=== PATIENT | male | born 1990 | race Caucasian/White ===

== ENCOUNTER 2020-07-05 09:44 | Outpatient (CLI) | payer BC, SELFPAY ==
--- NOTE | ~2020-07-05 | XR_ITS ---
EXAMINATION: XR lumbar spine 2-3V DATE: 07/05/2020 10:00 INDICATION: Dorsalgia TECHNIQUE: Anteroposterior and lateral views of the lumbar spine, and cone-down lateral view of the l umbosacral junction were obtained. COMPARISON: 06/29/2011 FINDINGS: There is no fracture, dislocation, or subluxation. There is chronic mild physiologic wedgin g of L1. A Schmorl's node is noted at L3. The intervertebral disc spaces are maintained. A calcificat ion of the right upper quadrant likely represents cholelithiasis. IMPRESSION: 1. No acute osseous abnormality. Reviewed, dictated and finalized at location A.
== END 2020-07-05 09:45 | disposition home or self-care (01) ==
LOC: ANHIMG 09:49
PROVIDERS: PCP Internal Medicine; Visit Provider Clinical Nurse Specialist
DX: M54.5 Low back pain (principal)
CPT/HCPCS: 72100

== ENCOUNTER 2020-07-13 09:06 | Outpatient (CLI) | payer BC, SELFPAY ==
--- NOTE | ~2020-07-13 | US_ITS ---
EXAMINATION: US abdomen limited EXAM DATE: 07/13/2020 09:33 INDICATION: R74.8 - Abnormal levels of other serum enzymes. Elevated liver enzymes. TECHNIQUE: Multiple grayscale and Doppler images of the abdomen right upper quadrant were obtained (b y a technologist who performed the scan) and subsequently reviewed. There is no prior study for lola lo. FINDINGS: The pancreatic head and body are normal in appearance. The pancreatic tail is not visualized. The l iver has normal echogenicity and contour. There are no focal liver lesions identified. There is no evidence of intrahepatic biliary duct dilation. Portal venous flow was seen in the hepatopedal, nor mal direction and has normal Doppler waveform. No right-sided hydronephrosis. Common bile duct measures 3 mm, which is normal. The gallbladder wall is normal in thickness, with ex pected amount of distention. No sonographic evidence of pericholecystic fluid. Tiny gallbladder dax yp measuring about 3 mm and requiring no further evaluation. Technologist performing exam reports nancy mead did not demonstrate sonographic Jimenez's sign. Please note that this sign is less reliable in patients who have received pain medication. IMPRESSION: 1. Unremarkable abdominal ultrasound exam. Reviewed, dictated and finalized at location B.
== END 2020-07-13 09:07 | disposition home or self-care (01) ==
LOC: ANHIMG 09:10
PROVIDERS: PCP Internal Medicine; Visit Provider Internal Medicine
DX: R74.8 Abnormal levels of other serum enzymes (principal)
CPT/HCPCS: 76705

== ENCOUNTER 2020-11-03 06:49 | Outpatient (CLI) | payer BC, SELFPAY ==
--- NOTE | ~2020-11-03 | MR_ITS ---
EXAMINATION: MR lumbar spine wo con DATE: 11/03/2020 07:31 INDICATION: Low back pain. TECHNIQUE: Magnetic resonance imaging (MRI) of the lumbar spine was performed without intravenous con trast. Sequences included sagittal T2-weighted FSE, sagittal T2-weighted FS FSE, sagittal T1-weighted FSE, and axial T2-weighted FSE. COMPARISON: Lumbar spine radiograph 07/05/2020 FINDINGS: Bone alignment is normal. There are Schmorl's nodes at multiple levels. There is mild chron ic anterior wedging of T12 and L1 vertebral bodies. There is mildly decreased disc height at L5-S1. T he distal spinal cord signal intensity is normal. The conus medullaris is at L1. The following disc l evels are specifically discussed: L1-L2: There is a central protrusion. There is mild bilateral facet joint osteoarthritis. There is no neural foraminal stenosis. There is mild central canal stenosis. L2-L3: The disc does not extend beyond the endplate margin. There is mild bilateral facet joint osteo arthritis. There is no neural foraminal stenosis. There is no central canal stenosis. L3-L4: The disc is mildly bulging. There is mild bilateral facet joint osteoarthritis. There is mild bilateral neural foraminal stenosis. There is no central canal stenosis. L4-L5: The disc does not extend beyond the endplate margin. There is moderate right and mild left fac et joint osteoarthritis. There is no neural foraminal stenosis. There is no central canal stenosis. L5-S1: The disc is bulging and has an annular fissure. There is moderate bilateral facet joint osteoa rthritis. There is mild bilateral neural foraminal stenosis. There is mild central canal stenosis. IMPRESSION: 1. Mild lumbar spondylosis. Reviewed, dictated and finalized at location A. IMPRESSION: 1. Mild lumbar spondylosis.
== END 2020-11-03 06:50 | disposition home or self-care (01) ==
LOC: ANHIMG 06:55
PROVIDERS: PCP Internal Medicine; Visit Provider Nurse Practitioner
DX: M54.5 Low back pain (principal); M47.816 Spondylosis without myelopathy or radiculopathy, lumbar region
CPT/HCPCS: 72148

== ENCOUNTER 2021-05-11 09:36 | Emergency (ER) | payer BC, SELFPAY ==
--- NOTE | ~2021-05-11 | XR_ITS ---
XR lumbar spine 2-3V DATE: 05/11/2021 10:52 INDICATION: Low back pain TECHNIQUE: AP, lateral, coned lateral lumbosacral views COMPARISON: 07/05/2020 lumbar spine FINDINGS: There is mild anterior wedging at T11 and T12, likely developmental, in addition to occasio nal lower thoracic and lumbar Schmorl's nodes. No fracture or bone destruction or spondylolisthesis. The lumbar pedicles are intact. There is mild loss of interspace height and moderate spurring at L1-2. Mild loss of interspace height at L2-3 and L5-S1.. IMPRESSION: Mild degenerative changes; little interval change since 07/05/2020 Reviewed, dictated and finalized at location A.
[2021-05-11 09:36] VITALS: BP 140/100; PULSE 82; RESP 17; TEMP 36.3; O2SAT 100
--- NOTE | 2021-05-11 10:30 | ED.BACK ---
HPI - Back Pain/Injury General Chief Complaint: Back Pain/Injury Stated Complaint: back pain Time Seen by Provider: 05/11/21 09:40 History of Present Illness HPI Narrative: 31-year-old male presents the emergency room with complaints of acute on chronic low back pain. Patient states he woke up on Saturday with all involved worse with movement. Patient states in October he had an MRI, which showed multilevel osteoarthritis and bulging disks. Patient at that time was referred to pain management, but did not follow-up. Patient denies any bowel or bladder changes. Denies saddle anesthesia. Patient states he is unsuccessfully been using a heating pad, ice, and alternating ibuprofen and Aleve with no relief of symptoms Related Data Home Medications Medication Instructions Recorded Confirmed esomeprazole magnesium 20 mg 20 mg PO DAILY 01/12/20 05/11/21 tablet,delayed release Allergies Allergy/AdvReac Type Severity Reaction Status Date / Time cefprozil Allergy Unknown Hives Verified 05/11/21 09:39 Review of Systems Review of Systems: CONSTITUTIONAL: Denies fever, chills, or sweats. EYES: Denies visual changes, redness, or discharge. ENT: Denies rhinorrhea, congestion, sore throat, or otalgia. CARDIOVASCULAR: Denies chest pain, palpitations, or edema. RESPIRATORY: Denies cough or dyspnea. GASTROINTESTINAL: Denies abdominal pain, nausea, vomiting, or diarrhea. GENITOURINARY: Denies dysuria or hematuria. SKIN: Denies rash or itching. MUSCULOSKELETAL: Reports low back pain NEUROLOGIC: Denies headache, numbness, dizziness, or weakness. PSYCHIATRIC: Denies anxiety or depression. [facility] Past Medical History Medical History Allergies Anxiety GERD (gastroesophageal reflux disease) HTN (hypertension) Sleep apnea Family History Family History Mother Atrial fibrillation Diabetes mellitus Sleep apnea Hypertension Factor V Leiden MTHFR mutation Father Carcinoma of colon Diabetes mellitus Sleep apnea Hypertension Alcoholism Grandparent Carcinoma of colon Diabetes mellitus Atrial fibrillation Blood clotting disorder Cardiovascular disorder Social History Social History Smoking status: Never smoker Alcohol intake: current Drinks per week: 140 Alcohol use details: Whiskey Substance use: current Substance use type: marijuana Exam Narrative: GENERAL: Well-appearing, well-nourished, and in no acute distress. HEAD: Normocephalic, atraumatic. EYES: PERRLA and EOMI. ENT: Nares clear, no rhinorrhea or epistaxis. Mucous membranes moist. CHEST: Clear to auscultation. No respiratory distress. No wheezes rales or rhonchi HEART: Regular rate and rhythm. No murmur heard. Normal peripheral pulses. ABDOMEN: Soft, nontender, nondistended, normal active bowel sounds. EXTREMITIES: Normal range of motion. No edema. BACK: Midline lumbar spinal tenderness, pain with range of motion in all escalante of movement, no bony abnormality, no step-offs SKIN: Warm, dry, no rash. NEURO: No focal deficits. Alert and oriented x3. PSYCH: Normal mood and affect. Course Vital Signs Vital signs: Vital Signs Temperature 36.3 C L 05/11/21 09:36 Pulse Rate 82 05/11/21 09:36 Respiratory Rate 17 05/11/21 09:36 Blood Pressure 140/100 H 05/11/21 09:36 Pulse Oximetry 100 05/11/21 09:36 Temperature 36.3 C L 05/11/21 09:36 Pulse Rate 82 05/11/21 09:36 Respiratory Rate 17 05/11/21 09:36 Blood Pressure 140/100 H 05/11/21 09:36 Pulse Oximetry 100 05/11/21 09:36 Discharge Plan Discharge Clinical Impression: Lumbar back pain Patient Disposition: Home, Self-Care Condition: Stable Instructions: Antibiotic Form Prescriptions: New hydrocodone-acetaminophen 5-325 mg tablet 1 tablet PO Q6H PRN (Reason: gisella
[2021-05-11] MEDS: methocarbamoL 500 MG TABLET 750 MG PO (10:37)
--- NOTE | 2021-05-11 10:46 | PC.NURSE ---
Pt to XRAY via w/c at this time.
[2021-05-11 11:23] VITALS: BP 159/98; PULSE 78; RESP 18; O2SAT 100
== END 2021-05-11 11:24 | disposition home or self-care (01) ==
PROVIDERS: Emergency Provider Nurse Practitioner Family; PCP Internal Medicine
DX: M54.50 Low back pain, unspecified (principal); I10 Essential (primary) hypertension; G47.30 Sleep apnea, unspecified; G89.29 Other chronic pain
CPT/HCPCS: 72100; 96372; 99283; A9270; J1100

== ENCOUNTER 2021-05-24 08:39 | Emergency (ER) | payer BC, SELFPAY ==
[2021-05-24] VITALS (15 sets, daily range): BP systolic 131–153; BP diastolic 85–92; PULSE 89–144; RESP 13–31; TEMP 36.4; O2SAT 96–100
--- NOTE | ~2021-05-24 | XR_ITS ---
EXAMINATION: XR chest 1V portable INDICATION: Shortness of breath, tachycardia TECHNIQUE: Portable AP chest at 0931 hours COMPARISON: None available FINDINGS: There are minimal airspace opacities of the right lung base. No pleural effusion or pneumot horax is identified. The cardiomediastinal silhouette is normal. IMPRESSION: 1. Minimal right basilar airspace opacity, consistent with atelectasis versus pneumonia. Reviewed, dictated and finalized at location A. IMPRESSION: 1. Minimal right basilar airspace opacity, consistent with atelectasis versus p neumonia.
--- NOTE | 2021-05-24 08:48 | ECG_ITS ---
Measurements Intervals [place] Rate: 129 P: 268 GA: 115 QRS: 63 QRSD: 104 T: 0 QT: 326 QTc: 479 Interpretive Statements ECTOPIC/JUNCTIONAL TACHYCARDIA NONSPECIFIC ST & T-WAVE ABNORMALITY ABNORMAL RHYTHM ECG NO PREVIOUS ECG AVAILABLE FOR COMPARISON Electronically Signed On 05-24-2021 15:50:30 CDT by César Laguerre M.D.
--- NOTE | 2021-05-24 09:01 | ED.ARRPALP ---
HPI - Arrhythmia/Palpitations General Chief Complaint: Arrhythmia/Palpitations Stated Complaint: increasd HR Time Seen by Provider: 05/24/21 08:44 Source: patient, RN notes reviewed and old records reviewed Mode of arrival: ambulatory Limitations: no limitations History of Present Illness HPI narrative: This is 31 year old male with history of GERD, chronic back pain and alcohol use disorder who presents for evaluation of heart racing. Patient states this morning he woke up feeling his heart racing. He checked his heart rate and it was 140. He is also reporting associated shortness of breath, anxiety and lightheadedness. He denies cough, chest pain, fever, chills, nausea , vomiting or abdominal pain. He states he received an epidural steroid injection yesterday , and he is unsure if this related. He also admits to drinking 6-7 alcoholic drinks last night, and he drinks heavily. His mother states he frequently seems to have elevated heart rate for 1-2 days after his heavy drinking. Related Data Home Medications Medication Instructions Recorded Confirmed esomeprazole magnesium 20 mg 20 mg PO DAILY 01/12/20 05/11/21 tablet,delayed release Allergies Allergy/AdvReac Type Severity Reaction Status Date / Time cefprozil Allergy Unknown Hives Verified 05/11/21 09:39 Review of Systems Review of Systems: All systems reviewed & are unremarkable except as noted in HPI and below Constitutional: Constitutional: Denies chills and Denies fever(s) ENT: Denies sore throat Cardiovascular: Cardiovascular: Denies chest pain, Reports rapid heart rate and Denies radiating jaw, neck or arm pain Respiratory: Respiratory: Denies cough, Reports dyspnea and Denies wheezing Gastrointestinal: Gastrointestinal: Denies abdominal pain, Reports diarrhea, Denies nausea and Denies vomiting Genitourinary: Genitourinary: Denies hematuria Musculoskeletal: Musculoskeletal: Reports back pain (chronic but denies acute pain now) Neurologic: Reports dizziness and Denies headache(s) [facility] Past Medical History Medical History Allergies Anxiety GERD (gastroesophageal reflux disease) HTN (hypertension) Lumbar spondylosis Sleep apnea Family History Family History Mother Atrial fibrillation Diabetes mellitus Sleep apnea Hypertension Factor V Leiden MTHFR mutation Father Carcinoma of colon Diabetes mellitus Sleep apnea Hypertension Alcoholism Grandparent Carcinoma of colon Diabetes mellitus Atrial fibrillation Blood clotting disorder Cardiovascular disorder Social History Social History Smoking status: Never smoker Alcohol intake: current Drinks per week: 140 Alcohol use details: Whiskey Substance use: current Substance use type: marijuana Exam Const: General: no acute distress and alert Orientation/consciousness: patient oriented x3 Eyes: Pupils: Equal, round and reactive pupils present EOM: EOMs intact bilaterally Resp: Effort & Inspection: normal respiratory effort and no retractions Auscultation: clear to auscultation bilaterally Cardio: Rate: tachycardic Rhythm: regular rhythm Heart sounds: no murmurs GI: GI Palp: Yes Soft to palpation, No Tenderness to palpation present (GI), No Guarding due to palpation present (GI) and No Rigid due to palpation Auscultation: normal bowel sounds Skin: General skin exam: normal color Rashes: no rashes Neuro: General: patient oriented x3, moves all extremities and CN's II-XI intact bilaterally Extrem: General: normal to inspection Psych: Mental Status: mental status grossly normal Affect: normal affect Course Reevaluation(s) Reevaluation #1: Patient's labs are stable. He appears to be going into junctional tachycardia but he is now sinus rhythm rate 88 after metoprolol
[2021-05-24] MEDS: SODIUM CHLORIDE 0.9% IV 1,000 ML 999 ML IV CONT ×2 (09:07→10:00)
[2021-05-24 09:15] LABS: Basophils Percent Auto 0.1 % (0.2-1.2); Hematocrit 47.3 % (42.0-52.0); Hemoglobin 15.8 g/dL (14.0-18.0); Immature Granulocyte Absolute 0.08 K/mm3 (0.00-0.031); Immature Granulocyte Percent A 0.5 % (0-0.5); Lymphocytes Percent Auto 12.1 % (18.3-44.2); Mean Corpuscular HGB Conc 33.4 g/dl (32-36); Mean Corpuscular Hemoglobin 30.3 pg (26-34); Mean Corpuscular Volume 90.6 fl (80-100); Mean Platelet Volume 9.6 fl (7.4-10.4); Monocytes Absolute Auto 0.6 K/mm3 (0.1-0.6); Monocytes Percent Auto 3.8 % (2.6-8.5); Neutrophils Absolute Auto 13.1 K/mm3 (1.3-6.7); Neutrophils Percent Auto 83.5 % (45.5-73.1); Platelet Count Result 394 k/mm3 (150-375); Red Blood Count 5.22 M/mm3 (4.6-6.20); White Blood Count 15.7 K/mm3 (4.5-10.0)
[2021-05-24 09:16] LABS: Appearance Urine Clear (Clear); Bilirubin Urine Negative (Negative); Color Urine Yellow (Yellow); Glucose Urine UA Negative (Negative); Ketones Urine Negative (Negative); Leukocyte Esterase Ur Negative LEU/UL (Negative); Nitrate Urine Negative (Negative); Protein Urine Negative (Negative); Urobilinogen Urine 0.2 mg/dL (<2.0); pH Urine 6.5 (5.0-9.0)
[2021-05-24 09:23] LABS: Add Urine Microscopic? YES; Blood Urine Trace-Intact (Negative)
[2021-05-24 09:24] LABS: Lactic Acid Reflex 1.3 mmol/L (0.7-2.1)
[2021-05-24 09:24] LABS: Mucus Urine Rare /lpf; RBC Urine 0-2 /hpf (0-2)
[2021-05-24 09:27] LABS: Prothrombin Time 12.9 Seconds (11.1-14.7)
[2021-05-24 09:28] LABS: Partial Thromboplastin Time 25.5 SECONDS (22.3-36.8)
[2021-05-24 09:28] LABS: Alveolar/Arterial O2 Gradient 32.6 mmHg; Base Excess ABG -1.4 mEq/l (+/-2.0); Carboxyhemoglobin 0.3 % THb (0-2.0); Fractional Inspired Oxygen 21 %; HCO3 ABG 21.7 mEq/l (22.0-26.0); Methemoglobin ABG 0.2 %THb (0-1.5); Oxygen Content ABG 20.4 %vol (16.0-22.0); Oxygen Saturation ABG 96.2 % (95.0-100.0); Oxyhemoglobin 94.9 % THb (90.0-100.0); PCO2 ABG 32.1 mmHg (35.0-45.0); PO2 ABG 78.7 mmHg (80.0-100.0); PO2 FiO2 Ratio Arterial Blood 3.75 %; Reduced Hemoglobin 4.6 %THb (0-5.0); Total Hemoglobin 15.3 g/dL (12.0-18.0); pH ABG 7.447 (7.350-7.450)
[2021-05-24 09:29] LABS: Device ROOM AIR; Modified Allen's Test Pass; Site Drawn RIGHT RADIAL
[2021-05-24 09:30] LABS: Ethanol < 10 mg/dL (<10)
[2021-05-24 09:31] LABS: Amphetamine Screen Urine Negative (Negative); Barbiturate Screen Urine Negative (Negative); Benzodiazepines Screen Urine Negative (Negative); Cannabinoid Screen Urine Negative (Negative); Cocaine Screen Urine Negative (Negative); D Dimer 0.28 ug/mL (<0.48); Methadone Screen Urine Negative (Negative); Opiate Screen Urine Negative (Negative); Phencyclidine Screen Urine Negative (Negative)
[2021-05-24 09:53] LABS: Alanine Aminotransferase 29 U/L (4-50); Alkaline Phosphatase 89 U/L (38-126); Aspartate Amino Transferase 31 U/L (17-59); Bilirubin,Total 0.5 mg/dL (0.2-1.3); Blood Urea Nitrogen 16 mg/dL (9-20); Calcium 9.6 mg/dL (8.4-10.2); Chloride 105 mmol/L (98-107); Estimated CRCL calculation 128 ml/min; Estimated Glomerular Filt Rate > 60; Glucose 143 mg/dL (65-110); Lipase 96 U/L (23-300); Magnesium 2.2 mg/dL (1.6-2.3); NT Pro B Type Natriuretic Pept 15 pg/mL (5-100); Potassium 3.5 mmol/L (3.4-5.0); Sodium 139 mmol/L (137-145); Troponin I < 0.012 ng/mL (0.000-0.034)
[2021-05-24] MEDS: METOPROLOL TARTRATE INJ 5 MG/5 ML VIAL IV PUSH ×2 (09:57→11:34)
[2021-05-24 10:03] LABS: Anion Gap 12 mmol/L (8-16); Carbon Dioxide 22 mmol/L (22-30)
--- NOTE | 2021-05-30 07:44 | PC.NURSE ---
05/24/21 late entry 2nd liter ns infused at 1100
== END 2021-05-24 12:10 | disposition home or self-care (01) ==
PROVIDERS: Emergency Provider General Practice; PCP Internal Medicine
DX: I47.1 Supraventricular tachycardia (principal); I10 Essential (primary) hypertension; K21.9 Gastro-esophageal reflux disease without esophagitis; G89.29 Other chronic pain; M54.9 Dorsalgia, unspecified; M47.816 Spondylosis without myelopathy or radiculopathy, lumbar region; R91.8 Other nonspecific abnormal finding of lung field; R94.31 Abnormal electrocardiogram [ECG] [EKG]
CPT/HCPCS: 36415; 36600; 71045; 80053; 80307; 81001; 82375; 82805; 83050; 83605; 83690; 83735; 83880; 84484; 85025; 85380; 85610; 85730; 93005; 96361; 96374; 96375; 99284; J7030

== ENCOUNTER 2023-01-06 08:19 | Emergency (ER) | payer BC, SELFPAY ==
[2023-01-06 08:20] VITALS: BP 192/109; PULSE 99; RESP 17; TEMP 36.4; O2SAT 100
[2023-01-06 09:33] VITALS: BP 163/98; PULSE 102; RESP 20; O2SAT 100
[2023-01-06] MEDS: methylPREDNISolone SOD SUCC 125 MG VIAL IM (10:16)
[2023-01-06] MEDS: KETOROLAC (*BKC) 60 MG/2 ML VIAL IM (10:17)
--- NOTE | 2023-01-06 10:17 | ED.GENADULT ---
HPI - General Adult General Chief complaint: Back Pain/Injury Stated complaint: sciatica, covid+ Time Seen by Provider: 01/06/23 09:42 Source: patient, RN notes reviewed and old records reviewed Mode of arrival: ambulatory Limitations: no limitations History of Present Illness HPI narrative: This is 32 year old male with history of sciatica who presents for evaluation of exacerbation of his back pain and COVID+. Patient states he exacerbated his back 1.5 weeks ago. He reports left low back pain that radiates to his foot. He reports numbness to his foot. He denies urinary retention, incontinence or bowel incontinence. He denies saddle anesthesia. He has been taking ibuprofen and aleve for his pain. He had MRI lumbar spine 2 years ago showing bulging disc. He has steroid injection in the past. He has not followed up since this new onset of pain. He also reports he developed symptoms of covid this morning and he tested positive on at home test. He reports congestion and body aches. no other symptoms at this time. He would like prescription of PAxlovid. Related Data Home Medications Medication Instructions Recorded Confirmed esomeprazole magnesium 20 mg 20 mg PO DAILY 01/12/20 05/11/21 tablet,delayed release Allergies Allergy/AdvReac Type Severity Reaction Status Date / Time cefprozil Allergy Unknown Hives Verified 01/06/23 09:36 Review of Systems Constitutional: Constitutional: Denies weakness ENT: Reports nasal congestion Cardiovascular: Cardiovascular: Denies syncope, Denies rapid heart rate, Denies irregular heart rhythm, Denies leg edema and Denies dyspnea Respiratory: Respiratory: Denies chest congestion, Denies hemoptysis, Denies excessive phlegm production and Denies dyspnea Gastrointestinal: Gastrointestinal: Denies abdominal pain, Denies hematochezia, Denies diarrhea and Denies vomiting Genitourinary: Genitourinary: Denies hematuria, Denies dysuria, Denies penile discharge and Denies testicular pain Musculoskeletal: Musculoskeletal: Reports back pain, Denies joint swelling, Denies loss of height and Denies muscle weakness Neurologic: Denies syncope, Denies focal weakness and Denies weakness PMFSH Past Medical History Medical History Allergies Anxiety GERD (gastroesophageal reflux disease) HTN (hypertension) Lumbar spondylosis Sleep apnea Family History Family History Mother Atrial fibrillation Diabetes mellitus Sleep apnea Hypertension Factor V Leiden MTHFR mutation Father Carcinoma of colon Diabetes mellitus Sleep apnea Hypertension Alcoholism Grandparent Carcinoma of colon Diabetes mellitus Atrial fibrillation Blood clotting disorder Cardiovascular disorder Social History Social History Smoking status: Never smoker Alcohol intake: current Drinks per week: 140 Alcohol use details: Whiskey Substance use: current Substance use type: marijuana Exam Const: General: no acute distress and alert Nutritional Appearance: well nourished Orientation/consciousness: patient oriented x3 HENMT: Head: normal to inspection Eyes: EOM: EOMs intact bilaterally Resp: Effort & Inspection: normal respiratory effort Cardio: Rate: regular rate Rhythm: regular rhythm Heart sounds: no murmurs GI: GI Palp: Yes Soft to palpation, No Tenderness to palpation present (GI), No Guarding due to palpation present (GI) and No Rigid due to palpation Auscultation: normal bowel sounds Back/Spine/Pelvis: Back: no CVA tenderness Skin: General skin exam: normal color Rashes: no rashes Wounds: no wounds Neuro: General: patient oriented x3, moves all extremities and CN's II-XI intact bilaterally Cranial nerves: Yes Nystagmus not present Speech: normal speech Other: no foot drop Extrem: General
[2023-01-06 10:24] LABS: Alanine Aminotransferase 42 U/L (6-50); Albumin Level 4.3 g/dL (3.5-5.1); Alkaline Phosphatase 96 U/L (38-126); Anion Gap 11 mmol/L (8-16); Aspartate Amino Transferase 39 U/L (17-59); Bilirubin,Total 0.5 mg/dL (0.2-1.3); Blood Urea Nitrogen 14 mg/dL (9-20); Calcium 9.1 mg/dL (8.4-10.2); Carbon Dioxide 24 mmol/L (22-30); Chloride 102 mmol/L (98-107); Estimated CRCL calculation 128 ml/min; Estimated Glomerular Filt Rate > 60; Glucose 113 mg/dL (65-110); Potassium 3.8 mmol/L (3.4-5.0); Sodium 137 mmol/L (137-145)
[2023-01-06 10:49] LABS: Influenza A QL RT-PCR Negative (Negative); Influenza B QL RT-PCR Negative (Negative); SARS-CoV-2 RNA PCR Positive (Negative)
[2023-01-06 12:12] VITALS: BP 158/87; PULSE 88; RESP 20; O2SAT 98
== END 2023-01-06 12:13 | disposition home or self-care (01) ==
PROVIDERS: Emergency Provider General Practice; PCP Internal Medicine
DX: M54.16 Radiculopathy, lumbar region (principal); U07.1 COVID-19; K21.9 Gastro-esophageal reflux disease without esophagitis; I10 Essential (primary) hypertension; G47.30 Sleep apnea, unspecified
CPT/HCPCS: 36415; 80053; 87636; 96372; 99284; J1885; J2930

== ENCOUNTER → 2023-01-18 11:23 | Outpatient (CLI) | payer SELFPAY ==
--- NOTE | ~2023-01-18 | MR_ITS ---
MRI of the lumbar spine Clinical History: Paresthesia Technique: Axial T2-weighted images, and sagittal T1-weighted, T2-weighted, and T2 fat-sat images wer e acquired. COMPARISON: 11/03/2020 Findings: There is no acute fracture or subluxation of the lumbar spine. No suspicious bone marrow si gnal abnormality seen. At L1-L2, there is no disc bulge or herniation. There is moderate facet degenerative change. No spina l canal stenosis or neural foraminal narrowing. At L2-L3, there is degenerative disc narrowing with mild disc bulge. There is mild facet arthropathy. No central canal stenosis or neural foraminal narrowing. At L3-L4, there is minimal disc bulge with mild to moderate facet hypertrophy. No spinal canal stenos is or neural foraminal narrowing. At L4-L5, there is no significant disc bulge or herniation. There is mild facet joint hypertrophy. No spinal canal stenosis or neural foraminal narrowing. At L5-S1, there is a large left paracentral disc herniation/extrusion, extending superiorly behind th e L5 vertebral body, impinging the exiting left-sided L5-S1 level nerve root. There is severe left ne ural foraminal narrowing. Right neural foramen is minimally narrowed. Paravertebral soft tissues are unremarkable. Impression: Large left paracentral disc herniation/extrusion at L5-S1, extending behind the L5 vertebral body, wi th resultant impingement of the exiting left-sided L5-S1 nerve root and severe left neural foraminal narrowing. Reviewed, dictated and finalized at [facility]. ISES TECHNICIAN Impression: Large left paracentral disc herniation/extrusion at L5-S1, extending behind the L5 vertebral body, with resultant impingement of the exiting left-sided L5-S1 nerve root and severe left neural foraminal narrowing.
== END ==
PROVIDERS: PCP Internal Medicine; Visit Provider Nurse Practitioner
DX: M51.27 Other intervertebral disc displacement, lumbosacral region (principal); R20.0 Anesthesia of skin
CPT/HCPCS: 72148

== ENCOUNTER 2023-01-18 12:10 | Outpatient (CLI) | payer SELFPAY ==
[2023-01-18 12:30] LABS: Basophils Percent Auto 0.2 % (0.2-1.2); Eosinophils Absolute Auto 0.1 K/mm3 (0-0.3); Eosinophils Percent Auto 1.5 % (0-4.4); Hematocrit 40.6 % (42.0-52.0); Hemoglobin 13.1 g/dL (14.0-18.0); Immature Granulocyte Absolute 0.01 K/mm3 (0.00-0.031); Immature Granulocyte Percent A 0.2 % (0-0.5); Lymphocytes Percent Auto 32.2 % (18.3-44.2); Mean Corpuscular HGB Conc 32.3 g/dl (32-36); Mean Corpuscular Hemoglobin 26.9 pg (26-34); Mean Corpuscular Volume 83.4 fl (80-100); Mean Platelet Volume 8.6 fl (7.4-10.4); Monocytes Absolute Auto 0.5 K/mm3 (0.1-0.6); Neutrophils Absolute Auto 3.8 K/mm3 (1.3-6.7); Neutrophils Percent Auto 57.9 % (45.5-73.1); Platelet Count Result 438 k/mm3 (150-375); Red Blood Count 4.87 M/mm3 (4.6-6.20); Red Cell Distribution Width 14.7 % (11.5-14.5); White Blood Count 6.5 K/mm3 (4.5-10.0)
[2023-01-18 12:46] LABS: Alanine Aminotransferase 46 U/L (6-50); Albumin Level 4.5 g/dL (3.5-5.1); Alkaline Phosphatase 77 U/L (38-126); Anion Gap 10 mmol/L (8-16); Aspartate Amino Transferase 42 U/L (17-59); Bilirubin,Total 0.5 mg/dL (0.2-1.3); Blood Urea Nitrogen 13 mg/dL (9-20); Calcium 9.4 mg/dL (8.4-10.2); Carbon Dioxide 24 mmol/L (22-30); Chloride 105 mmol/L (98-107); Cholesterol 252 mg/dL (0-200); Estimated Glomerular Filt Rate > 60; Glucose 96 mg/dL (65-110); HDL Direct 33 mg/dL; Sodium 139 mmol/L (137-145); Triglycerides 194 mg/dL (<150)
[2023-01-18 12:56] LABS: LDL Cholesterol Direct 156 mg/dL
[2023-01-22 14:34] LABS: DHEA-Sulfate 222 mcg/dL (106-464)
[2023-01-22 16:17] LABS: FSH 9.6 mIU/mL (1.4-12.8); LH 7.1 mIU/mL (1.5-9.3)
[2023-01-22 17:48] LABS: Testosterone Free 74.4 pg/mL (35.0-155.0); Testosterone Total 474 ng/dL (250-1100)
[2023-01-26 00:57] LABS: Estradiol, Ultrasensitive 18 pg/mL (< OR = 29)
== END 2023-01-18 12:11 | disposition home or self-care (01) ==
PROVIDERS: PCP Internal Medicine; Visit Provider Nurse Practitioner
DX: E29.1 Testicular hypofunction (principal); R53.83 Other fatigue; Z13.220 Encounter for screening for lipoid disorders; Z13.29 Encounter for screening for other suspected endocrine disorder
CPT/HCPCS: 36415; 80053; 80061; 82627; 82670; 83001; 83002; 84402; 84403; 84443; 85025

== ENCOUNTER 2023-03-19 09:01 | Outpatient (CLI) | payer BC, SELFPAY ==
--- NOTE | 2023-04-02 17:54 | WPDHOMESLEEP ---
Sleep Study - Home Unattended Date of Study: 03/19/23 Ordering Provider: Eugenia Sahu NP Interpreting Provider: Ivon Guzman DO Home Sleep Study Type: Watch JULIA Height: 1.91 m Weight: 113.398 kg Body Mass Index: 31.2 Neck Circumference (inches): 18 [place]: 8 Reason for Sleep Study Daytime hypersomnia Sleep History The patient is a 32 y/o male with mild anemia, hypogonadism, hyperlipidemia, GERD and hypertension that had a sleep study ordered by his primary care for evaluation of sleep apnea. The patient's sleep intake forms were unavailable. [facility] Past Medical History Medical History Allergies Anxiety GERD (gastroesophageal reflux disease) HTN (hypertension) Lumbar spondylosis Sleep apnea Family History Family History Mother Atrial fibrillation Diabetes mellitus Sleep apnea Hypertension Factor V Leiden MTHFR mutation Father Carcinoma of colon Diabetes mellitus Sleep apnea Hypertension Alcoholism Grandparent Carcinoma of colon Diabetes mellitus Atrial fibrillation Blood clotting disorder Cardiovascular disorder Social History Social History Smoking status: Never smoker Alcohol intake: current Drinks per week: 140 Alcohol use details: [place] Substance use: current Substance use type: marijuana Lack of Transportation: No Lack of Food: Never True Current Housing: I Have Housing Concerned About Future Housing: No Difficulty Paying Gas/Electric Bills: No Difficulty Paying for Meds: No Currently Unemployed: No Education: Master's Degree or Higher Difficulty w/ Childcare or Family Care: No Medications Home Medications Medication Instructions Recorded Confirmed Type esomeprazole magnesium 20 mg 20 mg PO DAILY 01/12/20 03/05/23 History tablet,delayed release Sleep Procedure The sleep study was completed using WatchPAT a technically adequate device with seven channels: peripheral arterial tone, actigraphy, body position, snore, respiratory movement, pulse oximetry, sleep staging, and heart rate. Prior to using the device, the patient received verbal and written instructions for its application and was provided with the help desk phone number for additional telephonic instruction with 24-hour availability of qualified personnel to answer questions. The study was scored using CMS guidelines. Sleep Architecture The patient had a total recording time of 8 hours 9 minutes and a total sleep time of 6 hours 3 minutes. The sleep efficiency was 74.10%. The sleep latency was 5 minutes and the REM latency was 86 minutes. The patient had 34 awakenings. The patient spent 74.10% of total sleep time in light sleep, 8.41% of total sleep time in deep sleep and 17.49% of total sleep time in REM sleep. The patient spent 125 minutes, 34.4% of total sleep time in the supine position. Respiratory Analysis The patient had an overall AHI of 32.7 and a central apnea index of 1.6. The REM AHI was 6.6. Mendez Wren respirations were not seen. Oximetry Data The patient had an average oxygen saturation of 96% with a minimum of 77% and a maximum of 100%. The patient had 185 desaturations that were 4% or greater, resulting in an oxygen desaturation index of 32. The patient had 178 desaturations between 4-9%, 6 desaturations between 10-20% and 1 desaturation greater than 20%. The patient spent 0.1 minutes of total sleep time with an oxygen saturation below 88%. Snoring Profile Snoring was present throughout the majority of the study. Cardiac Profile The average pulse was 71 beats per minute with a minimum of 50 beats per minute. Assessment and Plan Assessment and Plan (1) GILBERTO (obstructive sleep apnea): Code(s): G47.33 - Obstructive sleep apnea (adult) (pediatric) Status: Acute
[2023-04-02 17:55] VITALS: BMI 31.2
== END 2023-03-20 07:30 | disposition home or self-care (01) ==
PROVIDERS: PCP Internal Medicine; Visit Provider Nurse Practitioner
DX: G47.33 Obstructive sleep apnea (adult) (pediatric) (principal); R40.0 Somnolence
CPT/HCPCS: 95800

== ENCOUNTER 2023-06-18 11:27 | Outpatient (CLI) | payer BC, SELFPAY ==
[2023-06-18 14:00] LABS: Basophils Absolute Auto 0.1 K/mm3 (0.0-0.1); Basophils Percent Auto 1.1 % (0.2-1.2); Eosinophils Absolute Auto 0.4 K/mm3 (0-0.3); Eosinophils Percent Auto 7.6 % (0-4.4); Hematocrit 43.1 % (42.0-52.0); Hemoglobin 13.6 g/dL (14.0-18.0); Immature Granulocyte Absolute 0.02 K/mm3 (0.00-0.031); Immature Granulocyte Percent A 0.4 % (0-0.5); Lymphocytes Absolute Auto 1.31 K/mm3 (0.9-3.2); Lymphocytes Percent Auto 23.8 % (18.3-44.2); Mean Corpuscular HGB Conc 31.6 g/dl (32-36); Mean Corpuscular Hemoglobin 27.3 pg (26-34); Mean Corpuscular Volume 86.4 fl (80-100); Mean Platelet Volume 9.9 fl (7.4-10.4); Monocytes Absolute Auto 0.7 K/mm3 (0.1-0.6); Monocytes Percent Auto 13.3 % (2.6-8.5); Neutrophils Percent Auto 53.8 % (45.5-73.1); Platelet Count Result 398 k/mm3 (150-375); Red Blood Count 4.99 M/mm3 (4.6-6.20); White Blood Count 5.5 K/mm3 (4.5-10.0)
[2023-06-18 14:23] LABS: Alanine Aminotransferase 41 U/L (6-50); Albumin Level 4.6 g/dL (3.5-5.1); Alkaline Phosphatase 104 U/L (38-126); Anion Gap 7 mmol/L (4-12); Aspartate Amino Transferase 43 U/L (17-59); Bilirubin,Total 0.7 mg/dL (0.2-1.3); Blood Urea Nitrogen 11 mg/dL (9-20); Calcium 9.8 mg/dL (8.4-10.2); Carbon Dioxide 28 mmol/L (22-30); Chloride 105 mmol/L (98-107); Cholesterol 221 mg/dL (0-200); Estimated Glomerular Filt Rate > 60; Glucose 102 mg/dL (65-110); HDL Direct 41 mg/dL; Potassium 3.8 mmol/L (3.4-5.0); Sodium 140 mmol/L (137-145); Triglycerides 261 mg/dL (<150)
[2023-06-18 14:34] LABS: LDL Cholesterol Direct 144 mg/dL
[2023-06-18 15:12] LABS: Iron 190 ug/dL (49-181)
[2023-06-18 15:21] LABS: Percent Iron Saturation 43 % (20-50)
[2023-06-18 15:31] LABS: Folic Acid 3.1 ng/mL (2.76->20)
[2023-06-18 15:48] LABS: Ferritin 7.25 ng/mL (17.9-464)
== END 2023-06-18 11:28 | disposition home or self-care (01) ==
LOC: ANHGOSHLAB 11:28
PROVIDERS: PCP Internal Medicine; Visit Provider Nurse Practitioner
DX: D64.9 Anemia, unspecified (principal); R53.83 Other fatigue; E78.00 Pure hypercholesterolemia, unspecified
CPT/HCPCS: 36415; 80053; 80061; 82607; 82728; 82746; 83540; 83550; 84443; 85025

== ENCOUNTER 2023-07-11 18:20 | Emergency (ER) | payer BC, SELFPAY ==
[2023-07-11] VITALS (8 sets, daily range): BP systolic 147–182; BP diastolic 84–136; PULSE 110–120; RESP 16–20; TEMP 36.8–39.1; O2SAT 98–100
--- NOTE | ~2023-07-11 | CT_ITS ---
EXAMINATION: CT abdomen pelvis w con DATE: 07/11/2023 20:12 INDICATION: fever, post colonoscopy TECHNIQUE: Computed tomography (CT) of the abdomen and pelvis was performed with 100 mL Omnipaque-350 intravenous contrast. Automated exposure control and iterative reconstruction technique were employe d. The dose-length product was 909.98 mGy-cm. COMPARISON: None. FINDINGS: Lower thorax: Scattered acinar opacities in the lingular and left lower lobe. Liver: Mild diffuse fatty infiltration. Biliary/Gallbladder: Gallbladder is normal. No bile duct dilation. Pancreas: No mass or duct dilation. Spleen: Normal. Adrenals:No mass. Kidneys: No suspicious mass, obstructing stone, or hydronephrosis. GI tract: Moderate hiatal hernia. No small or large bowel dilation. Submucosal fat deposition in the distal small bowel, as can be seen with Crohn's and celiac disease. Normal appendix. Mesentery/Peritoneum: No ascites, mass, or free air. Retroperitoneum: No mass. 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 Pelvis: Pelvic organs are within normal limits. Soft Tissues: Soft tissues and body wall unremarkable. Bones: No acute osseous finding. IMPRESSION: Pulmonary opacities may represent infection/aspiration. Hepatic steatosis. Otherwise no acute abdominopelvic process detected. Reviewed, dictated and finalized at location K.
--- NOTE | 2023-07-11 18:31 | ED.GENADULT ---
HPI - General Adult General Chief complaint: Unspecified Stated complaint: CHILLS S/P COLONSCOPY AT [facility] Time Seen by Provider: 07/11/23 18:21 History of Present Illness HPI narrative: 33-year-old male presenting to the emergency department for evaluation for chills and feeling poorly after a recent colonoscopy. Patient did have a colonoscopy earlier today at [facility], patient states after getting home he began having increased chills fatigue and complained of joint pain. Patient denies any nausea vomiting or abdominal pain. Patient states he the cause could be due to having some anemia. Patient denies any active bleeding. Patient also does report a history of anxiety and states this episode has worsened his anxiety. Related Data Home Medications Medication Instructions Recorded Confirmed esomeprazole magnesium 20 mg 20 mg PO DAILY 01/12/20 07/11/23 tablet,delayed release Allergies Allergy/AdvReac Type Severity Reaction Status Date / Time cefprozil Allergy Unknown Hives Verified 07/11/23 18:34 Review of Systems Review of Systems: All systems reviewed & are unremarkable except as noted in HPI and below PMFSH Past Medical History Medical History (Updated 07/12/23 @ 00:01 by Lindsey Cortes) Allergies Anxiety GERD (gastroesophageal reflux disease) HTN (hypertension) Lumbar spondylosis Sleep apnea Surgical History Surgical History (Updated 06/18/23 @ 10:48 by Savi Trejo CMA) History of back surgery Family History Family History Mother Atrial fibrillation Diabetes mellitus Sleep apnea Hypertension Factor V Leiden MTHFR mutation Father Carcinoma of colon Diabetes mellitus Sleep apnea Hypertension Alcoholism Grandparent Carcinoma of colon Diabetes mellitus Atrial fibrillation Blood clotting disorder Cardiovascular disorder Social History Social History (Updated 06/18/23 @ 10:53 by Savi Trejo CMA) Smoking status: Never smoker Alcohol intake: current Drinks per week: 140 Alcohol use details: Whiskey Substance use: current Substance use type: marijuana Do You Feel Safe in your Home?: Yes Lack of Transportation: No Lack of Food: Never True Current Housing: I Have Housing Concerned About Future Housing: No Difficulty Paying Gas/Electric Bills: No Difficulty Paying for Meds: No Currently Unemployed: No Education: Master's Degree or Higher Difficulty w/ Childcare or Family Care: No Exam Narrative: APPEARANCE: Well appearing, no pain, no distress, well-nourished. HEAD: normocephalic, atraumatic. EYES: PERRLA/EOMI, conjunctivae clear. NOSE: Normal no drainage EARS:TMS clear with good light reflex. THROAT: Pharynx clear, no exudate. NECK: Supple. No adenopathy, no masses. RESPIRATORY: Airway patent, respirations nonlabored. Clear to auscultation bilaterally, no rales, rhonchi, wheezing. CARDIOVASCULAR: Regular rate and rhythm without murmurs rubs or gallops. ABDOMINAL: Soft, nontender, nondistended, normal bowel sounds MUSCULOSKELETAL: Moves all extremities. Strength/ROM intact, No edema, No calf tenderness. NEURO: Alert. Cranial nerves II through XII intact. Grossly intact SKIN: Warm, dry. Normal Color Course Vital Signs Vital signs: Vital Signs Temperature 98.3 F 07/11/23 18:28 Pulse Rate 117 H 07/11/23 18:28 Respiratory Rate 20 07/11/23 18:28 Blood Pressure 147/136 H 07/11/23 18:28 Pulse Oximetry 100 07/11/23 18:28 Temperature 102.3 F H 07/11/23 19:52 Pulse Rate 110 H 07/11/23 21:21 Respiratory Rate 19 07/11/23 21:21 Blood Pressure 154/84 H 07/11/23 21:21 Pulse Oximetry 98 07/11/23 21:21 Medical Decision Making [facility] Narrative Medical decision making narrative: 33-year-old male presents emergency department for evaluation for fever status post colonoscopy. Patient did have a mildly elevated lactic acid. Patient did have a
[2023-07-11] MEDS: LORazepam INJ (*CRX) 2 MG/ML VIAL 1 MG IV PUSH (18:39)
[2023-07-11] MEDS: SODIUM CHLORIDE 0.9% IV 1,000 ML 999 ML IV CONT ×2 (18:40→19:58)
[2023-07-11 19:06] LABS: Basophils Percent Auto 0.2 % (0.2-1.2); Eosinophils Absolute Auto 0.1 K/mm3 (0-0.3); Eosinophils Percent Auto 0.7 % (0-4.4); Hematocrit 41.8 % (42.0-52.0); Hemoglobin 13.5 g/dL (14.0-18.0); Immature Granulocyte Absolute 0.05 K/mm3 (0.00-0.031); Immature Granulocyte Percent A 0.4 % (0-0.5); Lymphocytes Absolute Auto 1.49 K/mm3 (0.9-3.2); Lymphocytes Percent Auto 10.9 % (18.3-44.2); Mean Corpuscular HGB Conc 32.3 g/dl (32-36); Mean Corpuscular Hemoglobin 27.4 pg (26-34); Mean Platelet Volume 9.5 fl (7.4-10.4); Monocytes Absolute Auto 0.2 K/mm3 (0.1-0.6); Monocytes Percent Auto 1.2 % (2.6-8.5); Neutrophils Absolute Auto 11.8 K/mm3 (1.3-6.7); Neutrophils Percent Auto 86.6 % (45.5-73.1); Platelet Count Result 412 k/mm3 (150-375); Red Blood Count 4.92 M/mm3 (4.6-6.20); Red Cell Distribution Width 15.6 % (11.5-14.5); White Blood Count 13.6 K/mm3 (4.5-10.0)
[2023-07-11 19:21] LABS: Alanine Aminotransferase 60 U/L (6-50); Albumin Level 4.5 g/dL (3.5-5.1); Alkaline Phosphatase 82 U/L (38-126); Anion Gap 9 mmol/L (4-12); Aspartate Amino Transferase 53 U/L (17-59); Bilirubin,Total 0.7 mg/dL (0.2-1.3); Blood Urea Nitrogen 13 mg/dL (9-20); Calcium 8.8 mg/dL (8.4-10.2); Carbon Dioxide 24 mmol/L (22-30); Chloride 107 mmol/L (98-107); Estimated CRCL calculation 115 ml/min; Estimated Glomerular Filt Rate > 60; Glucose 126 mg/dL (65-110); Lipase 158 U/L (23-300); Magnesium 1.7 mg/dL (1.6-2.3); Potassium 3.4 mmol/L (3.4-5.0); Sodium 140 mmol/L (137-145)
[2023-07-11] MEDS: METOPROLOL TARTRATE INJ 5 MG/5 ML VIAL IV PUSH (19:41)
[2023-07-11 19:42] LABS: Influenza A QL RT-PCR Negative (Negative); Influenza B QL RT-PCR Negative (Negative); RSV RNA, RT-PCR Negative (Negative); SARS-CoV-2 RNA PCR Negative (Negative)
[2023-07-11] MEDS: HYDROmorphone HCL INJ (*CRX) 1 MG/ML SYR IV PUSH (19:42)
[2023-07-11 19:44] LABS: Lactic Acid Reflex 2.3 mmol/L (0.7-2.0)
--- NOTE | 2023-07-11 19:53 | PC.NURSE ---
pt family member reported pt skin feeling very warm. temperature taken - 102.3 F. made aware.
[2023-07-11] MEDS: ACETAMINOPHEN 500 MG TABLET 1000 MG PO (19:58)
[2023-07-11 20:31] LABS: Appearance Urine Clear (Clear); Bilirubin Urine Negative (Negative); Blood Urine Negative (Negative); Color Urine Yellow (Yellow); Glucose Urine UA Negative (Negative); Ketones Urine Negative (Negative); Leukocyte Esterase Ur Negative LEU/UL (Negative); Nitrate Urine Negative (Negative); Protein Urine Negative (Negative); Urobilinogen Urine 0.2 mg/dL (<2.0)
[2023-07-11 20:32] LABS: Add Urine Microscopic? NO
[2023-07-11] MEDS: metroNIDAZOLE 500 MG TABLET PO (21:42)
[2023-07-11] MEDS: CIPROFLOXACIN 500 MG TAB PO (21:42)
[2023-07-11 22:32] LABS: Reflex Lactic Acid Yes or No Add Lactic
== END 2023-07-11 21:46 | disposition home or self-care (01) ==
PROVIDERS: Emergency Provider Emergency Medicine; PCP Internal Medicine
DX: R50.9 Fever, unspecified (principal); Z20.822 Contact with and (suspected) exposure to COVID-19; I10 Essential (primary) hypertension; K21.9 Gastro-esophageal reflux disease without esophagitis; G47.30 Sleep apnea, unspecified; Z79.899 Other long term (current) drug therapy
CPT/HCPCS: 36415; 74177; 80053; 81003; 83605; 83690; 83735; 85025; 87637; 96361; 96374; 96375; 99284; A9270; J1170; J2060; J7030; Q9967

== ENCOUNTER 2024-10-15 17:33 | Emergency (ER) | payer BC, SELFPAY ==
[2024-10-15 17:40] VITALS: BP 140/102; PULSE 93; RESP 18; TEMP 36.3; O2SAT 100
--- NOTE | 2024-10-15 18:14 | ED.SKABFB ---
HPI - Skin/Abscess/Foreign Bdy General Chief complaint: Skin/Abscess/Foreign Body Stated complaint: Skin Irritation Time Seen by Provider: 10/15/24 18:14 Source: patient Mode of arrival: ambulatory Limitations: no limitations History of Present Illness HPI narrative: 34-year-old male presented for complaint of a red round on the left thigh. Onset yesterday. Says the lesion became more red today. Endorses mild pain. Says his house is 'infested with brown recluse spiders.' Denies drainage, streaking, nausea vomiting, fevers or chills. Has not taken anything for symptoms. Patient saw telecommunications sales representative a week ago for skin lesions to the left lower leg. Related Data Home Medications ?Medication ?Instructions ?Recorded ?Confirmed ?Last Taken ?Type esomeprazole magnesium 20 mg 20 mg PO DAILY 01/12/20 08/04/24 Unknown History tablet,delayed release Allergies Allergy/AdvReac Type Severity Reaction Status Date / Time cefprozil Allergy Unknown Hives Verified 10/15/24 18:03 Review of Systems Review of Systems: CONSTITUTIONAL: Denies body aches, fever, chills, or sweats. EYES: Denies visual changes, redness, or discharge. ENT: Denies rhinorrhea, congestion CARDIOVASCULAR: Denies chest pain, palpitations, or edema. RESPIRATORY: Denies cough or dyspnea. GASTROINTESTINAL: Denies abdominal pain, nausea, vomiting, or diarrhea. SKIN: reports red lesion left thigh MUSCULOSKELETAL: Denies back pain, joint pain, or myalgia. NEUROLOGIC: Denies headache, numbness, tingling, or weakness. PMF Past Medical History Medical History Steatohepatitis Metabolic syndrome Fatty liver Essential hypertension Lumbar spondylosis HTN (hypertension) GERD (gastroesophageal reflux disease) Sleep apnea Anxiety Allergies Surgical History Surgical History History of back surgery Family History Family History Mother Atrial fibrillation Diabetes mellitus Sleep apnea Hypertension Factor V Leiden MTHFR mutation Father Carcinoma of colon Diabetes mellitus Sleep apnea Hypertension Alcoholism Grandparent Carcinoma of colon Diabetes mellitus Atrial fibrillation Blood clotting disorder Cardiovascular disorder Social History Social History Smoking status: Never smoker Alcohol intake: current Drinks per week: 140 Alcohol use details: Whiskey Substance use: current Substance use type: marijuana Do You Feel Safe in your Home?: Yes Lack of Transportation: No Lack of Food: Never True Current Housing: I Have Housing Concerned About Future Housing: No Difficulty Paying Gas/Electric Bills: No Difficulty Paying for Meds: No Currently Unemployed: No Education: Master's Degree or Higher Difficulty w/ Childcare or Family Care: No Comments At time of signature, I have reviewed and agree with nursing past medical, surgical, social and family history unless otherwise noted. Please see nursing chart for further information. There is no relevant family history pertinent to the presenting complaint Exam Narrative: GENERAL: Well-appearing HEAD: Normocephalic, atraumatic. EYES: conjunctivae clear, and EOMI. ENT: Mucous membranes moist. Oropharynx without edema, erythema or lesions. NECK: Supple. No lymphadenopathy CHEST: Clear to auscultation. HEART: Regular rate and rhythm. SKIN: Warm, dry. Left anterior thigh with area of dark erythema 1.5cm diameter with surrounding light erythema 7cm diameter, nontender, no fluctuance or active drainage. Left lower leg with healing scabbed lesions approx 0.5cm diameter. NEURO: Alert and oriented x3. Course Course Emergency Course: Patient is aware of diagnosis, understands and agrees to treatment plan. Anticipatory guidance given. Patient agrees to follow-up as directed and is aware of reasons to seek care at the emergency department. Portions of this record may have been created with voice recognition software Level of Care: Express Care Visit Vital Signs Vital signs: Vital Signs Temperature 97.4 F L 10/15/24 17:40 Pulse Rate 93 10/15/24 17:40 Respiratory Rate 18 10/15/24 17:40 Blood Pressure 140/102 H 10/15/24 17:40 Pulse Oximetry 100 10/15/24 17:40 Oxygen Delivery Room Air 10/15/24 17:40 Temperature 97.4 F L 10/15/24 17:40 Pulse Rate 93 10/15/24 17:40 Respiratory Rate 18 10/15/24 17:40 Blood Pressure 140/102 H 10/15/24 17:40 Pulse Oximetry 100 10/15/24 17:40 Oxygen Delivery Room Air 10/15/24 17:40 Reviewed MDM - Skin/Abscess/Foreign Bdy MDM Narrative Medical decision making narrative: Discussed physical exam findings, reviewed prescription. Advised supportive measures and signs/symptoms to go to the ER. Pt is appropriate for outpt treatment and f/u. Differential Diagnosis Differential diagnosis: Likely abscess of skin or subcutaneous tissue, viral exanthem, dermatophytosis, urticaria, herpes zoster, cellulitis, eczema, insect bites, impetigo and contact dermatitis Discharge Plan Discharge Clinical Impression: Cellulitis Patient Disposition: Home Condition: Stable Instructions: Antibiotic Form, Cellulitis (ED) Additional Instructions: Keep the area clean and dry - cleanse with warm water and mild soap and allow to fully dry. Ok to apply neosporin to the site Keep it open to air (no bandages unless the site is draining) Tylenol Motrin as needed for pain Watch for worsening symptoms including pain, redness, swelling, streaking, pus/drainage, fever. Go to the ER with any of these symptoms or concerns. Follow up with primary care provider in 1 week as needed. Patient Language: [place] Prescriptions: New doxycycline hyclate 100 mg tablet 100 mg PO BID 5 Days Qty: 10 0RF No Action esomeprazole magnesium 20 mg tablet,delayed release (DR/EC) 20 mg PO DAILY metoprolol tartrate 25 mg tablet 25 mg PO DAILY Qty: 180 1RF propranolol 10 mg tablet 10 mg PO .COMPLEX Qty: 30 1RF Rx Instructions: 10 mg orally; Take 1 tablet 1 hour before public speaking. May take 1 extra tablet per day as needed. (DME) AutoPap See Rx Instructions .Route .MEDSUPPLY Qty: 1 0RF Rx Instructions: Resmed AirSense 11 AutoPAP 5-15 cm H2O, CPAP mask/filters/tubing and heated humidity. losartan 25 mg tablet 25 mg PO BID Qty: 180 1RF Follow-up/Referrals: Calderon Uribe DO [Primary Care Provider, Internal Medicine] Time of Disposition: 18:24
== END 2024-10-15 18:34 | disposition home or self-care (01) ==
PROVIDERS: Emergency Provider Nurse Practitioner Family; PCP Internal Medicine
DX: L03.116 Cellulitis of left lower limb (principal); I10 Essential (primary) hypertension; K21.9 Gastro-esophageal reflux disease without esophagitis; E88.810 Metabolic syndrome; K75.81 Nonalcoholic steatohepatitis (NASH); M47.816 Spondylosis without myelopathy or radiculopathy, lumbar region
CPT/HCPCS: 99213; G0463